=== PATIENT | male | born 2000 | race Caucasian/White ===

== ENCOUNTER 2021-03-17 21:06 | Emergency (ER) | payer OTHER ==
[~2021-03-17] VITALS: Ht 170.2 cm; Wt 65.8 kg
[2021-03-17] MEDS ORDERED: CEPHALEXIN 250250 M1 PO (22:08)
[2021-03-17 22:15] VITALS: BP 130/73
== END 2021-03-17 22:16 | disposition home or self-care (01) ==
LOC: M.ERS 21:06
DX: S02.2XXA Fracture of nasal bones, initial encounter for closed fracture (principal); F17.210 Nicotine dependence, cigarettes, uncomplicated; W50.0XXA Accidental hit or strike by another person, initial encounter; Y93.68 Activity, volleyball (beach) (court); Y92.39 Other specified sports and athletic area as the place of occurrence of the external cause; Y99.8 Other external cause status